=== PATIENT | male | born 1970 | race Caucasian/White ===

== ENCOUNTER 2020-10-08 14:47 | Outpatient (RCR) | payer OTHER, SELFPAY | END 2020-12-21 23:59 | LOC: IMMUN 14:47 | PROVIDERS: PCP Family Medicine; Visit Provider Family Medicine | DX: Z23 Encounter for immunization (principal) | CPT/HCPCS: 0001A; 0002A; 91300 ==

== ENCOUNTER 2021-02-04 07:39 | Day surgery (SDC) | payer OTHER, SELFPAY ==
[2021-02-04] VITALS (11 sets, daily range): BP systolic 104–141; BP diastolic 47–78; PULSE 56–75; RESP 16–18; TEMP 35.9–36.4; O2SAT 96–100; BMI 38.2
[2021-02-04] MEDS: Lactated Ringers 1,000 ML 100 ML IV (08:29)
[2021-02-04] MEDS: Cefazolin 2 GM in 0.9% Normal Saline 100 ML IV (09:07)
--- NOTE | 2021-02-04 09:44 | PCM.HP.STD ---
HPI - General HPI Narrative BETZY RIOS, is a 50 M who presents with an obstructive right ureteral calculi he is currently not having pain during the procedure retrograde pyelogram first to make sure the stone is still there. [facility] Medical History (Updated 02/04/21 @ 09:[address] Hay Harris MD) CPAP (continuous positive airway pressure) dependence High cholesterol History of echocardiogram History of irregular heartbeat History of kidney stones History of stress test Hypertension Non-smoker Seasonal allergies Sleep apnea Wears glasses Home Medications atorvastatin 10 mg PO QHS 01/28/21 [History Last Taken Unknown] lisinopril 10 mg PO DAILY 01/28/21 [History Last Taken Unknown] ciprofloxacin HCl [Cipro] 500 mg PO BID #6 tab 02/04/21 [Rx Last Taken Unknown] oxycodone-acetaminophen 1 tab PO Q4H PRN 7 Days #14 tab 02/04/21 [Rx Last Taken Unknown] Allergy/AdvReac Type Severity Reaction Status Date / Time No Known Allergies Allergy Verified 02/04/21 08:04 Surgical History (Updated 01/28/21 @ 14:23 by Sienna Dewey) History of appendectomy History of surgery History of surgery on arm Social History Smoking Status: Never smoker ROS Constitutional Constitutional: Denies chills, fever(s) or malaise Eyes Eyes: Denies blurry vision or change in vision ENT HEENT: Reports none Cardiovascular Cardiovascular: Denies chest pain or palpitations Respiratory/Chest Respiratory/Chest: Denies cough or shortness of breath with exertion Gastrointestinal Gastrointestinal: Denies abdominal pain, constipation or diarrhea Musculoskeletal Musculoskeletal: Denies back pain, joint stiffness or joint swelling Integumentary Integumentary: Denies dry skin, jaundice, lesions or rash Neurologic Neurologic: Denies confusion, syncope or weakness Psychiatric Psychiatric: Reports none; Denies anxiety or depression Endocrine Endocrinology: Denies excessive sweating, fatigue or flushing Hematologic/Lymphatic Hematologic/Lymphatic: Denies anemia, easy bleeding or easy bruising Vital Signs Vital Signs Vital Signs: 02/04/21 08:05 Temperature 97.6 F L Temperature Source Temporal Pulse Rate 71 Respiratory Rate 16 Respiratory Pattern Normal Blood Pressure 141/78 H Blood Pressure Mean 99 Blood Pressure Source Monitor Blood Pressure Position Semi-Fowlers Blood Pressure Location Right Arm Pulse Ox 100 Oxygen Delivery Method Room Air Weight Weight: 120.7 kg Body Mass Index (BMI) 38.2 Physical Exam Const alert and oriented x3 General Appearance: cooperative HEENT normocephalic, head/scalp atraumatic, EAC's normal and TM's normal bilaterally Eyes PERRL and EOMs intact bilaterally Pupil: sluggish Neck no lymphadenopathy, supple and no JVD General: trachea midline Lymph Lymphatic: no lymphadenopathy noted, lymphedema and lymphadenopathy Resp normal respiratory effort, normal air movement and clear to auscultation bilaterally Cardio regular rate, regular rhythm and peripheral pulses 2+ throughout GI soft to palpation, non-tender and non-distended Extremity normal capillary refill and no clubbing, cyanosis or edema General Extremity: no tenderness to palpation of joints or extremities Skin no rashes or lesions noted General Skin Exam: turgor normal Lesions: no lesions Rashes: no rashes Neuro CN's II-XII intact bilaterally Speech: speech normal Motor Exam: strength 5/5 throughout; Negative for general weakness Psych thought process normal, cooperative and affect normal Appearance: appropriate Assessment & Plan Assessment/Plan (1) Ureteral calculi: PLAN: Plan to proceed with ureteroscopy laser lithotripsy of stone balloon dilation and stent placement.
--- NOTE | 2021-02-04 09:45 | OP.PCM_ITS ---
Report of Operation Date of Procedure: 02/04/21 Pre-Operative Diagnosis: Right obstructive ureteral calculi with hydronephrosis severe Post-Operative Diagnosis: Same Surgery/Procedure Performed:: Cystoscopy, right retrograde pyelogram, interpretation of fluoroscopic images, balloon dilation of the ureter, right ureteroscopy laser lithotripsy of stone and right stent placement Description of Surgical Findings:: This is a patient who presents to the hospital for treatment for an obstructing distal ureter calculi. I discussed with the patient how the surgery would be performed and we reviewed the risks and benefits of the surgery. The risk and benefits include the risk of failure to remove the stone completely and that the patient may need multiple procedures. We discussed the risk of an infection, the risk of bleeding. We d iscussed the very rare risk of serious complicated injury to the ureter. The patient understands that if the stone is not able to be removed safely that we may abort the procedure and place a stent. After full discussion and all questions address with the patient the consent form was signed the side was marked appropriately and the patient was taken back to the operating room for the procedure. The patient was taken back to the operating room. After induction of anesthesia by the anesthesiology team the patient was placed in dorsolithotomy position. The genitals were prepped and draped in usual sterile fashion. I went into the bladder with a 21 Vietnamese rigid cystourethroscope through the urethra. Upon entering the bladder I inspected the trigone the left and right ureteral orifice and the bladder itself. I then cannulated the Right ureteral orifice and advanced a 0.038 Glidewire up into the kidney. Then over the Glidewire I advanced a 5 Fr Ureteral catheter and performed a retrograde pyelogram with about 10cc of contrast, to delineate the anatomy and identify the stone location. The stone was impacted in the right mid ureter with severe hydronephrosis. Then a ureteral balloon dilator was advanced over the wire and the distal ureter was balloon dilated with a 12 Fr x 5cm balloon dilator. After 3 minutes of dilating the ureter the balloon was backloaded off the 0.038 glidewire then the safety wire was left in place. I then placed a second 0.038 Guidewire as a working wire and over the working 0.038 guidewire I went in with a Flexible 7.9fr ureteroscope. I was able to go inside with the 7.9Fr flexible utereroscope and I pulled out the working guidewire and then through the 7.9 fr flexible ureteroscope I ascended up the ureter with direct visualization until the stone was located, the stone was impacted in the ureter, then I engaged the stone with laser lithotripsy using a 270miron laser fiber with energy setting of 6 Hertz and 0.6 J until the stone was lasered into tiny little pieces that should pass on their own. After successful laser lithotripsy of the stone and stone fragements, a retrograde pyelogram was performed with 10cc of contrast and no extravasation of contrast or perforation was identified in the ureter. I then backed out of the ureter left the wire in place and then over the 0.038 guidewire I placed a double coiled pigtail ureteral stent. The ureteral stent was advanced over the 0.038 guidewire under direct fluoroscopic guidance and direct cystoscopic visual guidance, once the stent was in good position I pulled the wire and the stent coiled in the kidney and bladder in good position. I then drained the patient's bladder and the cystoscope was removed and the patient was taken back to the recovery room in good position. The patient was given discharge instructions to call the office for instructions on when to come to the office to have the stent removed in 10 days to hopefully let the ureter heal from the impacted ureter, he does have a risk of stricture formation in impacted site.
--- NOTE | 2021-02-04 09:45 | PCM.DC ---
Discharge Instructions Diet Discharge Diet: No restrictions Activity Discharge Activity: Return to Normal Activity and May Not Drive (while taking narcotic pain medications.) Dressing / Incision Call your doctor if you observe: Fever of 101 or Higher Follow Up Care Please Follow Up With: Hay Harris MD When: Call [phone] for an appointment Test Results: Test results from this visit will be discussed in further detail at your follow-up appointment, if applicable. Discharge Plan Admission Primary Reason for Your Visit: kidney stone Attending Provider: Hay Harris Primary Care Provider: Nitin Boswell Discharge Orders/Prescriptions Prescriptions: New ciprofloxacin HCl [Cipro] 500 mg tablet 500 mg PO BID Qty: 6 RF: 0 oxycodone-acetaminophen 5-325 mg tablet 1 tab PO Q4H PRN (Reason: pain) 7 Days Qty: 14 RF: 0 Continued atorvastatin 10 mg Tablet 10 mg PO QHS RF: 0 lisinopril 10 mg Tablet 10 mg PO DAILY RF: 0 Referrals / Follow Up: Nitin Boswell MD [Primary Care Provider] - Hay Harris MD [STAFF PHYSICIAN] - Disposition Disposition (needs filled in before D/C Order can be placed): Home, Self Care
--- NOTE | 2021-02-04 09:53 | EKG12_ITS ---
Test Reason : Blood Pressure : / mmHG Vent. Rate : 062 BPM Atrial Rate : 062 BPM P-R Int : 134 ms QRS Dur : 086 ms QT Int : 432 ms P-R-T Axes : 043 066 080 degrees QTc Int : 438 ms Normal sinus rhythm with sinus arrhythmia Normal ECG When compared with ECG of 06-JUL-2010 14:59, Nonspecific T wave abnormality now evident in Lateral leads Confirmed by VINNIE JEFF, RENALDO ([id number]), website/blog editor ANJANA RUCKER ([id number]) on 02/08/2021 9:47:11 AM Referred By: Hay Harris Confirmed By:RENALDO BIRMINGHAM MD
[2021-02-04 10:31] LABS: Troponin-I HS 4.2 pg/mL (3.0-78.5)
[2021-02-04] MEDS: Ketorolac 15 MG/ML Vial IV (11:30)
[2021-02-04 14:59] LABS: Troponin-I HS 3.2 pg/mL (3.0-78.5)
--- NOTE | 2021-02-04 15:10 | SUR.PHASEII ---
Troponin resulted; reported to Dr. Saucedo. No new orders.
--- NOTE | 2021-02-04 15:19 | SUR.PHASEII ---
Nitro paste removed prior to discharge.
== END 2021-02-04 15:15 | disposition home or self-care (01) ==
LOC: SDC 07:45 → AC 07:46
PROVIDERS: Anesthesiology; PCP Family Medicine; Referring Provider Urology; Visit Provider Urology
PROC: 0TJ98ZZ Inspection of Ureter, Via Natural or Artificial Opening Endoscopic (ICD-10-PCS; CPT 52352; principal; 2021-02-04 09:40)
DX: N13.2 Hydronephrosis with renal and ureteral calculous obstruction (principal); I10 Essential (primary) hypertension; E78.00 Pure hypercholesterolemia, unspecified; G47.30 Sleep apnea, unspecified; Z87.442 Personal history of urinary calculi; Z79.899 Other long term (current) drug therapy
CPT/HCPCS: 00918; 52356; 76000; 84484; 93005; J7120; C1726; C1769; C2617; J2405

== ENCOUNTER → 2021-03-22 09:19 | Outpatient (CLI) | payer OTHER, SELFPAY | PROVIDERS: PCP Family Medicine; Referring Provider Urology; Visit Provider Urology | DX: E29.1 Testicular hypofunction (principal) | CPT/HCPCS: 36415; 84403 ==

== ENCOUNTER 2021-09-22 13:36 | Outpatient (CLI) | payer OTHER, SELFPAY ==
--- NOTE | 2021-09-22 15:10 | RAD_ITS ---
EXAM: XR ABDOMEN, 1 VIEW CLINICAL INDICATION: CALCULUS OF KIDNEY TECHNIQUE: Frontal supine view of the abdomen/pelvis. This report was created using [employer] report generation technology. COMPARISON: None. FINDINGS: LOWER THORAX: No acute pathology. GASTROINTESTINAL TRACT: Unremarkable. Non-obstructive. No bowel or stomach distention. ORGANS: Punctate calcifications visualized overlying the left and right renal parenchymal outline suggesting renal stones. No organomegaly. BONES/JOINTS: Degenerative findings in the lumbar spine. SOFT TISSUES: No acute pathology. RAD/Abdomen Single View IMPRESSION: Punctate calcifications visualized overlying the left and right renal parenchymal outline suggesting renal stones. Electronically Signed: Luis Torre MD at 16:01 EST ,
== END 2021-09-22 23:59 | disposition home or self-care (01) ==
PROVIDERS: PCP Family Medicine; Referring Provider Urology; Visit Provider Urology
DX: N20.0 Calculus of kidney (principal)
CPT/HCPCS: 74018

== ENCOUNTER 2021-11-12 10:19 | Emergency (ER) | payer OTHER, SELFPAY ==
[2021-11-12 10:22] VITALS: BP 192/93; PULSE 104; RESP 17; TEMP 36.6; O2SAT 98; O2SAT 99; BMI 42.7
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
[2021-11-12 11:04] LABS: Absolute Lymphocyte Count 0.91 X10^3/uL (0.83-4.51); Absolute Neutrophil Count 4.2 X10^3/uL (2.0-7.7); Basophil# 0.07 X10^3/uL; Basophil% 1.2 % (0-1); Eosinophil# 0.17 X10^3/uL; Eosinophils% 2.9 % (0-5); Hematocrit 45.1 % (40-54); Hemoglobin 15.3 g/dL (13.0-16.5); Lymphocyte # 0.91 X10^3/ul (0.83-4.51); Lymphocyte % 15.6 % (19-41); Mean Corp Hgb Conc 33.9 g/dL (32-36); Mean Corpuscular Hgb 31.4 pg (27.0-32.0); Mean Corpuscular Volume 92.6 fL (80-94); Mean Platelet Vol. 9.1 fl (6.2-12.0); Monocyte# 0.45 X10^3/uL; Monocyte% 7.7 % (0-10); NRBC Flagged by Analyzer 0 % (0-5); Neutrophil % 72.1 % (47-70); Platelet Count 256 K/mm3 (150-450); RBC Distribution Width CV 12.2 % (11.6-14.6); RBC Distribution Width SD 41.9 fl (35.1-43.9); Red Blood Count 4.87 M/mm3 (4.6-6.2); White Blood Count 5.8 K/mm3 (4.4-11.0)
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
--- NOTE | 2021-11-12 11:10 | CT_ITS ---
EXAM: CT CHEST, ABDOMEN AND PELVIS WITH INTRAVENOUS CONTRAST CLINICAL INDICATION: trauma -- TRAUMA ONLY: IV Contrast. Dont wait for creatinine TECHNIQUE: Helically acquired images were obtained of the chest, abdomen and pelvis with intravenous contrast. This CT exam was performed using one or more of the following dose reduction techniques: automated exposure control, adjustment of the mA and/or kV according to patient size, and/or use of iterative reconstruction technique. This report was created using [employer] report generation technology. CONTRAST: 100ML OF ISOVUE 370 COMPARISON: None. FINDINGS: CHEST: LUNGS AND PLEURAL SPACES: Unremarkable. No mass. No consolidation or edema. No pleural effusion or thickening. No pneumothorax. HEART: Unremarkable. Heart size is normal. No pericardial effusion. No significant coronary artery calcifications. MEDIASTINUM: Unremarkable. No mediastinal or hilar adenopathy. Esophagus is unremarkable. No hiatal hernia. THYROID: Unremarkable. No thyroid lesions. ABDOMEN: LIVER: Unremarkable. Homogeneous. No focal mass. GALLBLADDER AND BILE DUCTS: Unremarkable. No calcified gallstones. No gallbladder distention or wall edema. No intra- or extrahepatic biliary ductal dilation. PANCREAS: Unremarkable. No focal cystic or solid mass. SPLEEN: Unremarkable. Normal size without focal cystic or solid mass. ADRENALS: Unremarkable. No nodules. KIDNEYS AND URETERS: 3 mm nonobstructive bilateral renal stones. Normal renal size and position. STOMACH AND BOWEL: Unremarkable. No stomach or bowel distention. No focal inflammatory change. PELVIS: APPENDIX: No evidence of acute appendicitis. BLADDER: Unremarkable. REPRODUCTIVE: Unremarkable as visualized. No mass. CHEST, ABDOMEN and PELVIS: INTRAPERITONEAL SPACE: No evidence of hemoperitoneum. No free air. BONES/JOINTS: Unremarkable. No suspicious lytic or blastic abnormality. SOFT TISSUES: Small fat-containing bilateral inguinal hernias. VASCULATURE: Unremarkable. Aorta is non-dilated. No aortic dissection. No obvious central pulmonary embolism although this study was not performed with the pulmonary embolism protocol. LYMPH NODES: Unremarkable. No enlarged lymph nodes. OTHER FINDINGS: 12 mm lesion within the left lobe suggestive of a cyst. CT/CT Chest, Abd, Pel w/Contrast IMPRESSION: 1. No evidence of acute intrathoracic or intra-abdominal injury. 2. No acute cardiopulmonary abnormality. 3. Bilateral nephrolithiasis. Electronically Signed: Rl George MD at 11:59 EDT ,
--- NOTE | 2021-11-12 11:10 | CT_ITS ---
EXAM: CT HEAD WITHOUT INTRAVENOUS CONTRAST CLINICAL INDICATION: Trauma TECHNIQUE: Multiple axial images were obtained of the head without intravenous contrast. This CT exam was performed using one or more of the following dose reduction techniques: automated exposure control, adjustment of the mA and/or kV according to patient size, and/or use of iterative reconstruction technique. This report was created using [employer] report generation technology. COMPARISON: None. FINDINGS: BRAIN AND EXTRA-AXIAL SPACES: Unremarkable. No intra- or extra-axial hemorrhage. No evidence of acute infarct. No intracranial mass or mass effect. There is preservation of the santos/white matter interface. Posterior fossa structures are unremarkable. Ventricles are appropriate for age. No hydrocephalus. Basal cisterns are patent. BONES/JOINTS: Unremarkable. No discrete lytic or blastic abnormalities. SOFT TISSUES: Right parietal scalp swelling is noted. SINUSES: Mucosal thickening of the paranasal sinuses noted. MASTOID AIR CELLS: Unremarkable. Clear. ORBITS: Visualized globes, extraocular muscles, optic nerves and retrobulbar fat appear unremarkable. CT/Brain/Head without Contrast IMPRESSION: No acute intracranial abnormality. Paranasal sinusitis Electronically Signed: Rl George MD at 11:44 EDT ,
[2021-11-12 11:22] LABS: AST(SGOT) 37 U/L (15-37); Alanine Aminotransfer ALT/SGPT 53 U/L (16-61); Albumin, Serum 3.7 g/dL (3.2-5.0); Alkaline Phosphatase 70 U/L (45-117); Anion Gap 5 (5-15); BUN 17 mg/dL (7-18); BUN/Creat Ratio 16.5 RATIO (10-20); Bilirubin, Direct 0.13 mg/dL (0.00-0.30); Calcium,Total 8.8 mg/dL (8.5-10.1); Chloride 106 mmol/L (98-107); Creatinine, Serum 1.03 mg/dL (0.70-1.30); EST Glomerular Filtration Rate 81 mL/min (>60); Est Glom Filt Rate - Afr Amer 98 mL/min (>60); Estimated Creatinine Clearance 87.61 ml/min; Glucose 194 mg/dL (74-106); Potassium 3.7 mmol/L (3.5-5.1); Protein, Total 7.7 g/dL (6.4-8.2); Sodium Level 137 mmol/L (136-145)
[2021-11-12] MEDS: Morphine 4 MG/ML Syringe IV (11:36)
[2021-11-12] MEDS: Ketorolac 15 MG/ML Vial IV (12:23)
[2021-11-12] MEDS: Orphenadrine 60 MG/2 ML Ampul IM (12:23)
[2021-11-12] MEDS: HYDROmorphone 1 MG/ML Syringe IV (12:24)
[2021-11-12 12:28] VITALS: BP 153/97; PULSE 103; RESP 15; O2SAT 99
[2021-11-12] MEDS: Lidocaine 1% /Epi 1:100 (20ml) 20 ML Vial INFILT (13:05)
[2021-11-12 13:06] VITALS: BP 146/77; PULSE 68; RESP 15; O2SAT 97
== END 2021-11-12 13:06 | disposition home or self-care (01) ==
PROVIDERS: Emergency Provider Emergency Medicine; PCP Family Medicine; Visit Provider Emergency Medicine
DX: S01.01XA Laceration without foreign body of scalp, initial encounter (principal); Z68.41 Body mass index [BMI] 40.0-44.9, adult; I10 Essential (primary) hypertension; E78.00 Pure hypercholesterolemia, unspecified; V43.52XA Car driver injured in collision with other type car in traffic accident, initial encounter; S39.012A Strain of muscle, fascia and tendon of lower back, initial encounter; G47.30 Sleep apnea, unspecified; Z87.442 Personal history of urinary calculi; Z79.899 Other long term (current) drug therapy; E66.9 Obesity, unspecified; S00.81XA Abrasion of other part of head, initial encounter
CPT/HCPCS: 12004; 70450; 71260; 72125; 74177; 80048; 80076; 85025; 93005; 96372; 96374; 96375; 99285; Q9967; A4216